=== PATIENT | male | born 1965 | race Two or more races ===

== ENCOUNTER 2017-09-19 08:48 | Emergency (ER) | payer OTHER ==
[2017-09-19 08:56] VITALS: PULSE 54; RESP 18; TEMP 98; O2SAT 100
[2017-09-19 09:16] VITALS: BP 177/102
--- NOTE | 2017-09-19 09:46 | RAD ---
PROCEDURE: Right Knee Radiographs. HISTORY: fall COMPARISON: No prior FINDINGS: BONES: Normal. No fracture. JOINTS: Tiny posterior patellar osteophytes are present. . Joint spaces preserved JOINT EFFUSION: Trace suprapatellar joint effusion. OTHER FINDINGS: None. IMPRESSION: No evidence of acute displaced fracture nor dislocation. Very minor early DJD. Trace suprapatellar joint effusion
--- NOTE | 2017-09-19 09:58 | C.PDOC ---
History Of Present Illness 52 year old male presents to the ED c/o right knee injury that occurred on after he slipped and fell on the snow. Patient states bruisng on knee still is present. Patient denies LOC, head injury, headache, other injuries sustained. Time Seen by Provider: 09/19/17 09:10 Chief Complaint (Nursing): Lower Extremity Problem/Injury History Per: Patient History/Exam Limitations: no limitations Onset/Duration Of Symptoms: Days Current Symptoms Are (Timing): Still Present Recent travel outside of the [place]: No Additional History Per: Patient - Knee Description Of Injury: Fell Past Medical History Reviewed: Historical Data, Nursing Documentation, Vital Signs Vital Signs: Last Vital Signs Temp 98 F 09/19/17 08:52 Pulse 54 L 09/19/17 08:52 Resp 18 09/19/17 08:52 BP 177/102 H 09/19/17 09:15 Pulse Ox 100 09/19/17 09:58 - Medical History PMH: No Chronic Diseases Surgical History: No Surg Hx Family History: States: Unknown Family Hx - Social History Hx Tobacco Use: No Hx Alcohol Use: No Hx Substance Use: No - Immunization History Hx Tetanus Toxoid Vaccination: No Hx Influenza Vaccination: No Hx Pneumococcal Vaccination: No Review Of Systems Constitutional: Negative for: Fever, Chills Cardiovascular: Negative for: Chest Pain Respiratory: Negative for: Shortness of Breath Musculoskeletal: Positive for: Leg Pain Skin: Negative for: Rash Neurological: Negative for: Weakness, Numbness Physical Exam - Physical Exam Appears: Non-toxic, No Acute Distress Skin: Normal Color, Warm, Dry Head: Atraumatic, Normacephalic Eye(s): bilateral: Normal Inspection Nose: No Discharge Oral Mucosa: Moist Neck: Normal ROM, Supple Extremity: Normal ROM, Tenderness (and ecchymosis to right lateral medial aspect ), Capillary Refill (< 2 seconds), Swelling (right lateral medial aspect), Other (No cellulitic component ) Pulses: Left Dorsalis Pedis: Normal, Right Dorsalis Pedis: Normal Neurological/Psych: Oriented x3, Normal Motor, Normal Sensation Gait: Steady ED Course And Treatment O2 Sat by Pulse Oximetry: 100 (ON RA) Pulse Ox Interpretation: Normal - Other Rad Right knee X-Ray X-Ray: Viewed By Me, Read By Radiologist Interpretation: PROCEDURE: Right Knee Radiographs. HISTORY: fall. COMPARISON : No prior. FINDINGS: BONES: Normal. No fracture. JOINTS: Tiny posterior patellar osteophytes are present. . Joint spaces preserved. JOINT EFFUSION: Trace suprapatellar joint effusion. OTHER FINDINGS: None. IMPRESSION: No evidence of acute displaced fracture nor dislocation. Very minor early DJD. Trace suprapatellar joint effusion Medical Decision Making Medical Decision Making: Assessment: knee injury Plan: * Right knee X-Ray * Motrin 600 mg PO * Gab wrap An gab wrap was applied to the patient's right knee. Patient was D/C home with instructions to follow up with PMD in 2 days for further evaluation. Disposition Counseled Patient/Family Regarding: Studies Performed, Diagnosis, Need For Followup, Rx Given - Disposition Referrals: [facility] [Outside] Disposition: HOME/ ROUTINE Disposition Time: 09:56 Condition: STABLE Additional Instructions: follow up with medical clinic in 2 days call to make an appointment motrin or advil as needed for pain rest return to ER if symptoms worsens or progress Instructions: Knee Pain Forms: Gen Discharge Inst [place]i, [employer] ([place]i) Print Language: BRITISH - Clinical Impression Clinical Impression: Knee injury - Scribe Statement The provider has reviewed the documentation as recorded by the Scribe Edwin Perea All medical record entries made by the Scribe were at my direction and personally dictated by me. I have reviewed the chart and agree that the record accurately reflects my personal performance of the history, physical exam, medical decision making, and the department course for this patient. I have also personally directed, reviewed, and agree with the discharge instructions and disposition.
== END 2017-09-19 10:00 | disposition home or self-care (01) ==
LOC: C.ER 08:48
DX: S89.91XA Unspecified injury of right lower leg, initial encounter (principal); W00.0XXA Fall on same level due to ice and snow, initial encounter; Y92.9 Unspecified place or not applicable